=== PATIENT | female | born 1965 | race African-American/Black ===

== ENCOUNTER → 2018-03-12 | Outpatient (CLI) | payer OTHER ==
[~2018-03-12] MED LIST: B-12500 MCG PO; CENTRUM SILVER1 EAC5 PO; CLEOCIN HCL150 MG PO; COZAAR 50 MG TA50 M2 PO; FLEXERIL PO; HYDROCHLOROTHIA25 M2 PO; KLOR-CON 1010 MEQ PO; MOBIC15 MG PO; TOPROL XL25 MG PO; VITAMINC500 PO
== END ==
LOC: M.RAD 10:03
DX: Z12.31 Encounter for screening mammogram for malignant neoplasm of breast (principal)